=== PATIENT | male | born 1985 | race Caucasian/White ===

== ENCOUNTER 2019-03-03 20:04 | Emergency (ER) | payer BC ==
--- NOTE | 2019-03-03 20:17 | Emergency Department Record ---
History of Present Illness - General Chief complaint: Hypogylcemia Stated complaint: DIABETIC ISSUES Time Seen by Provider: 03/03/19 20:08 Source: Patient, EMS Mode of Arrival: EMS Limitations: No limitations - History of Present Illness Initial comments: 33 yo IDDM with an Insulin pump presents to ED for evaluation following a hypoglycemic episode. Patient reports that he felt as though his BS was low at basketball practice tonight, unplugged his pump, but continued to drop. Patient reports that he was going to get something to eat on his way home following practice, but feels he may have waited too long to eat resulting in his symptoms. Patient was given 1/2 am [facility]UR[employer]IST[employer], reports that he is feeling much better. Patient denies fevers, chills, or recent illness symptoms. MD Complaint: Generalized weakness Onset/Timin -: Minutes(s) Location: Generalized Consistency: Now resolved Improves with: Other (Eating) Worsens with: None Context: History of similar Associated Symptoms: Denies other symptoms - Mason Coma Scale Eye Response: (4) Open spontaneously Motor Response: (6) Obeys commands Verbal Response: (5) Oriented Naga Total: 15 - Related Data Allergies Allergy/AdvReac Type Severity Reaction Status Date / Time No Known Drug Allergies Allergy Unverified 02/13/19 07:42 Review of Systems Constitutional: Denies: Chills, Fever, Malaise, Night sweats Eyes: Denies: Eye discharge, Eye pain ENT: Denies: Congestion, Ear pain, Epistaxis Respiratory: Denies: Cough, Dyspnea Cardiovascular: Denies: Chest pain, Dyspnea on exertion Endocrine: Denies: Fatigue, Heat or cold intolerance Gastrointestinal: Denies: Abdominal pain, Nausea, Vomiting Genitourinary: Denies: Incontinence, Retention Musculoskeletal: Denies: Arthralgia, Back pain Skin: Denies: Bruising, Change in color Neurological: Reports: Confusion. Denies: Abnormal gait, Headache, Seizure Psychiatric: Denies: Anxiety Hematological/Lymphatic: Denies: Anemia, Blood Clots Past Medical History - SOCIAL HISTORY Smoking Status: Never smoker Alcohol Use: Occasional Drug Use: None - RESPIRATORY Hx Respiratory Disorders: No - CARDIOVASCULAR Hx Cardio Disorders: No - NEURO Hx Neuro Disorders: No - GI Hx GI Disorders: No - Hx Genitourinary Disorders: No - ENDOCRINE Hx Endocrine Disorders: Yes Hx Thyroid Disease: Yes (Type I) - MUSCULOSKELETAL Hx Musculoskeletal Disorders: No - PSYCH Hx Psych Problems: No - HEMATOLOGY/ONCOLOGY Hx Hematology/Oncology Disorders: No Family Medical History Any Significant Family History?: No Physical Exam - General General Appearance: Alert, Oriented x3, Cooperative, No acute distress Limitations: No limitations - Head Head exam: Atraumatic, Normocephalic, Normal inspection Head exam detail: negative: Abrasion, Contusion, Rodriguez's sign, General tenderness, Hematoma, Laceration - Eye Eye exam: Normal appearance. negative: Conjunctival injection, Periorbital swelling, Periorbital tenderness, Scleral icterus - ENT Ear exam: negative: Auricular hematoma, Auricular trauma Nasal Exam: negative: Active bleeding, Discharge, Dried blood, Foreign body Mouth exam: negative: Drooling, Laceration, Muffled voice, Tongue elevation - Neck Neck exam: Normal inspection. negative: Meningismus, Tenderness - Respiratory Respiratory exam: Normal lung sounds bilaterally. negative: Rales, Respiratory distress, Rhonchi, Stridor - Cardiovascular Cardiovascular Exam: Regular rate, Normal rhythm, Normal heart sounds - GI/Abdominal GI/Abdominal exam: Soft. negative: Rebound, Rigid, Tenderness - Rectal Rectal exam: Deferred - exam: Deferred - Extremities Extremities exam: Normal inspection. negative: Pedal edema, Tenderness - Back Back exam: Denies: CVA tenderness (R), CVA tenderness (L) - Neurological Neurological exam: Alert, Normal gait, Oriented X3 - Psychiatric Psychiatric exam: Normal affect, Normal mood - Skin Skin exam: Normal color. negative: Abrasion Type of lesion: negative: abrasion Course Vital Signs 03/03/19 20:08 Pulse Rate [ 64 Pulse Ox Probe] Respiratory 20 Rate Blood Pressure 135/93 [Right Arm] Pulse Ox 99 - Reevaluation(s) Reevaluation #1: 03/03/19 20:16 Patient was seen and examined AO x 3, resting comfortably. Will provide oral intake to sustain the patient's glucose in recheck in 90 minutes. Reevaluation #2: 03/03/19 21:04 Patient's Insulin meter reads 272, reports that he is feeling at his baseline and appears stable for discharge at this time. Disposition Disposition: Discharge Clinical Impression: Insulin reaction Qualifiers: Encounter type: initial encounter Qualified Code(s): T38.3X5A - Adverse effect of insulin and oral hypoglycemic [antidiabetic] drugs, initial encounter Disposition: Home, Self-Care Condition: (2) Stable Instructions: Hypoglycemia in a Person with Diabetes (ED) Additional Instructions: Return to ED if your symptoms worsen or if you have any concerns. Follow-up with your family doctor in 3-5 days as directed. Forms: Patient Portal Access Time of Disposition: 21:05 Quality - Quality Measures Quality Measures: N/A - Blood Pressure Screening Does Patient Have Any of the Following: No Blood Pressure Classification: Hypertensive Reading Systolic Measurement: 135 Diastolic Measurement: 93 Screening for High Blood Pressure: < First Hypertensive BP, F/U Documented > [[id number]] First Hypertensive Follow-up Interventions: Referral to alternative/primary care provider.
== END 2019-03-03 21:18 | disposition home or self-care (01) ==
LOC: ER 20:04
DX: E10.649 Type 1 diabetes mellitus with hypoglycemia without coma (principal); T38.3X5A Adverse effect of insulin and oral hypoglycemic [antidiabetic] drugs, initial encounter; R53.1 Weakness; Z96.41 Presence of insulin pump (external) (internal)
CPT/HCPCS: 99283

== ENCOUNTER 2019-03-16 08:05 | Day surgery (SDC) | payer BC ==
[~2019-03-16 08:05] MED LIST: ACETAMINOPHEN 1,000 MG/100 ML BTL IVPB ONE
[2019-03-16] MEDS ORDERED: *PACU ONLY* KETAMINE HCL 10 MG/ML (20ML) VIAL IV ONE (08:06)
[2019-03-16] MEDS ORDERED: FENTANYL PF 100MCG/2ML VIAL IV ONE (08:06)
[2019-03-16] MEDS ORDERED: LIDOCAINE 2% MDV (20MG/ML) 20ML VIAL IV ONE (08:06)
[2019-03-16] MEDS ORDERED: MIDAZOLAM HCL 2MG/2ML VIAL IV ONE (08:06)
[2019-03-16] MEDS ORDERED: PROPOFOL 10 MG/ML VIAL IV ONE (08:06)
[2019-03-16] MEDS ORDERED: RINGERS SOLUTION,LACTATED 1,000 ML IV ONE (08:48)
[2019-03-16] MEDS ORDERED: BUPIVACAINE 0.25% W/EPI MPF 30ML VIAL SQ ONE (09:55)
--- NOTE | 2019-03-17 08:20 | Operative Note ---
DATE OF SURGERY: 03/16/2019 SURGEON: Oli Dia DO PREOPERATIVE DIAGNOSES: 1. Back mass x2. 2. Left forearm mass. POSTOPERATIVE DIAGNOSES: 1. Back mass x2. 2. Left forearm mass. OPERATION: 1. Excision of left forearm mass measuring 4 cm into the subcu. 2. Excision of left lower back mass measuring 3 cm into the subcu. 3. Excision of right back mass measuring 3 cm into the subcu. PROCEDURE: The patient is a 33-year-old male who was brought to the operating room, placed in the prone position. Local IV sedation was given per the department of anesthesia. The patient's left arm and back were prepped and draped in sterile fashion. Starting on the back on the right, the area was anesthetized with a total of 2 mL. A 2 cm incision was made. We did dissect out a 3 cm lipoma. Identical procedure was done on the left low back. This was identical size. Each one was closed with 4-0 Vicryl in a running subcuticular fashion. Attention now turned to left forearm. This area was anesthetic with a total of 5 mL of 0.25% Sensorcaine with epinephrine. A 3 cm incision was made. We did dissect out a 4 cm skin mass which was down to the subcu. All wounds closed with 4-0 Vicryl. Steri-Strips were applied. He was taken to the recovery room in stable condition. Final pathology pending. [facility]
== END 2019-03-16 10:39 | disposition home or self-care (01) ==
LOC: SUR 08:05
PROVIDERS: ATTEND Surgery
DX: R22.2 Localized swelling, mass and lump, trunk (principal); R22.32 Localized swelling, mass and lump, left upper limb; E11.9 Type 2 diabetes mellitus without complications; Z79.4 Long term (current) use of insulin
CPT/HCPCS: J7120